=== PATIENT | male | born 1980 | race African-American/Black ===

== ENCOUNTER 2018-04-13 17:33 | Emergency (ER) | payer SELFPAY ==
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
[2018-04-13 17:41] VITALS: BP 145/86; PULSE 75; TEMP 97.8; BMI 32.8
[2018-04-13] MEDS ORDERED: IBUPROFEN 600 MG TABLET (FP) PO ONE (17:49)
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
== END 2018-04-13 18:27 | disposition home or self-care (01) ==
LOC: JERFT 17:33 → JER 17:33 → JERFT 18:27
DX: S16.1XXA Strain of muscle, fascia and tendon at neck level, initial encounter (principal); V43.52XA Car driver injured in collision with other type car in traffic accident, initial encounter; Y93.89 Activity, other specified; Y92.410 Unspecified street and highway as the place of occurrence of the external cause
CPT/HCPCS: 99281-25

== ENCOUNTER 2018-10-11 17:15 | Emergency (ER) | payer OTHER, BC ==
[2018-10-11] MEDS ORDERED: ACETAMINOPHEN 500 MG TABLET (FP) PO ONE (17:29)
--- NOTE | 2018-10-11 17:29 | PDOC ---
Rapid Medical Evaluation Chief Complaint: Back Pain Time Seen by Provider: 10/11/18 17:26 Medical Evaluation: Allergies Allergy/AdvReac Type Severity Reaction Status Date / Time azithromycin [From Zithromax] Allergy Verified 10/11/18 17:26 10/11/18 17:26 I have performed a brief in-person evaluation of this patient. The patient presents with a chief complaint of: right knee pain s/p soda machine falling on him Pertinent physical exam findings: No bony deformity to RLE I have ordered the following: xrays The patient will proceed to the ED for further evaluation. Discharge Disposition - Diagnosis Leg pain - Referrals - Patient Instructions - Post Discharge Activity
[2018-10-11 17:30] VITALS: BP 143/88; PULSE 82; TEMP 97.7; BMI 32.1
[2018-10-11] MEDS ORDERED: ACETAMINOPHEN 500 MG TABLET (FP) ONE (17:44)
--- NOTE | 2018-10-11 18:01 | PDOC ---
History of Present Illness - General Chief Complaint: Injury Stated Complaint: KNEE AND BACK PAIN Time Seen by Provider: 10/11/18 17:26 - History of Present Illness Initial Comments: 10/11/18 18:00 38-year-old male without comorbidities presents for evaluation of right knee pain after a soda machine fell on his knee while at work today. Past History - Past Medical History Allergies/Adverse Reactions: Allergies Allergy/AdvReac Type Severity Reaction Status Date / Time azithromycin [From Zithromax] Allergy Verified 10/11/18 17:26 Home Medications: Ambulatory Orders Ibuprofen [Motrin -] 600 mg PO TID #30 tablet 10/11/18 COPD: No - Immunization History Immunization Up to Date: Yes - Suicide/Smoking/Psychosocial Hx Smoking History: Never smoked Hx Alcohol Use: No Drug/Substance Use Hx: No Substance Use Type: None Review of Systems - Review of Systems Musculoskeletal: Yes: Joint Pain *Physical Exam - Vital Signs Last Vital Signs Temp Pulse Resp BP Pulse Ox 97.7 F 82 18 143/88 99 10/11/18 17:26 10/11/18 17:26 10/11/18 17:26 10/11/18 17:26 10/11/18 17:26 - Physical Exam Comments: 10/11/18 17:59 R knee skin color and temperature are normal range of motion 0-90 with pain at terminal flexion. No areas of of tenderness other than the posterior and medial joint line. No instability normal hip and ankle range of motion ankle and foot are nontender normal hip range of motion negative straight leg raise test neurovascularly intact 10/11/18 18:00 Medical Decision Making - Medical Decision Making 10/11/18 17:59 R knee strain, suspect posterior medial lateral meniscal tear. Weight-bear as tolerated with crutches follow-up with orthopedic surgery. 10/11/18 18:00 X-rays of the right knee ankle and tib-fib are negative for acute fracture trauma or destructive process. *DC/Admit/Observation/Transfer Diagnosis at time of Disposition: Leg pain, Strain of right knee - Discharge Dispostion Disposition: HOME Condition at time of disposition: Stable Decision to Admit order: No - Referrals Referrals: Alison Harrison [Primary Care Provider] - Neymar Larson DO [Staff Physician] - - Patient Instructions Additional Instructions: He may weight-bear as tolerated with use of crutches. Follow-up with orthopedic surgery in 1-2 days for further evaluation and treatment options. Tylenol as directed, Motrin was sent here pharmacy. Do not take any other Advil Motrin Aleve or ibuprofen. Return to the emergency room for worsening symptoms and follow-up with orthopedic surgery in 1-2 days. - Post Discharge Activity
== END 2018-10-11 18:10 | disposition home or self-care (01) ==
LOC: JERFT 17:15
DX: S86.811A Strain of other muscle(s) and tendon(s) at lower leg level, right leg, initial encounter (principal); W20.8XXA Other cause of strike by thrown, projected or falling object, initial encounter; Y93.89 Activity, other specified; Y92.89 Other specified places as the place of occurrence of the external cause; Y99.0 Civilian activity done for income or pay
CPT/HCPCS: 73560-TC-RT-FY; 73590-TC-RT-FY; 73610-TC-RT-FY; 73630-TC-RT-FY; 99281-25

== ENCOUNTER 2018-10-12 20:22 | Emergency (ER) | payer OTHER, BC ==
--- NOTE | 2018-10-12 20:43 | PDOC ---
Rapid Medical Evaluation Time Seen by Provider: 10/12/18 20:41 Medical Evaluation: Allergies Allergy/AdvReac Type Severity Reaction Status Date / Time azithromycin [From Zithromax] Allergy Verified 10/11/18 17:26 10/12/18 20:42 HPI: R hip pain after soda machine fell on him PE: PT evaluated yesterday in the ER yesterday ORDERS: R hip x-ray Discharge Disposition - Diagnosis Leg pain - Referrals - Patient Instructions - Post Discharge Activity
[2018-10-12 20:44] VITALS: BP 135/69; PULSE 82; TEMP 98.5; BMI 30.7
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
== END 2018-10-12 21:24 | disposition home or self-care (01) ==
LOC: JERFT 20:22
DX: S73.101A Unspecified sprain of right hip, initial encounter (principal); W20.8XXA Other cause of strike by thrown, projected or falling object, initial encounter; Y93.89 Activity, other specified; Y92.89 Other specified places as the place of occurrence of the external cause; Y99.0 Civilian activity done for income or pay
CPT/HCPCS: 73523-TC-FY; 99281-25

== ENCOUNTER 2022-03-19 15:16 | Emergency (ER) | payer OTHER ==
[2022-03-19 15:25] VITALS: BP 126/75; PULSE 81; RESP 18; TEMP 98.1; BMI 34.0
[2022-03-19] MEDS ORDERED: IBUPROFEN 600 MG TABLET (FP) PO ONE ×2 (16:42→16:46)
== END 2022-03-19 17:00 | disposition home or self-care (01) ==
LOC: JERFT 15:16 → JER 15:16 → JERFT 17:00
DX: S99.922A Unspecified injury of left foot, initial encounter (principal); W20.8XXA Other cause of strike by thrown, projected or falling object, initial encounter
CPT/HCPCS: 73630-TC-LT; 99283-25